=== PATIENT | female | born 1955 | race Caucasian/White ===

== ENCOUNTER → 2024-02-08 08:06 | Outpatient (REF) | payer MEDICARE, OTHER, SELFPAY ==
[2024-02-08 10:25] LABS: Blood Urea Nitrogen 15 mg/dl (7-17)
== END ==
LOC: REG 08:06
PROVIDERS: ATTENDING PHYSICIAN Specialist; FAMILY PHYSICIAN Family Medicine
DX: H53.8 Other visual disturbances (principal)
CPT/HCPCS: 36415; 82565; 84520

== ENCOUNTER → 2024-08-06 11:10 | Outpatient (REF) | payer MEDICARE, OTHER, SELFPAY | LOC: DHSLP 11:10 | PROVIDERS: ATTENDING PHYSICIAN Family Medicine | DX: G47.30 Sleep apnea, unspecified (principal); R06.83 Snoring | CPT/HCPCS: 95800 ==

== ENCOUNTER → 2025-02-16 07:09 | Outpatient (REF) | payer MEDICARE, OTHER, SELFPAY ==
[2025-02-16 18:53] LABS: Hepatitis B Surface Antigen Negative (Negative)
[2025-02-16 19:11] LABS: Hepatitis C Antibody Negative (Negative)
== END ==
LOC: REG 07:09
PROVIDERS: ATTENDING PHYSICIAN Family Medicine
DX: R60.9 Edema, unspecified (principal); E06.3 Autoimmune thyroiditis; Z85.828 Personal history of other malignant neoplasm of skin; I87.2 Venous insufficiency (chronic) (peripheral); J45.20 Mild intermittent asthma, uncomplicated; R73.01 Impaired fasting glucose; K76.0 Fatty (change of) liver, not elsewhere classified; Z96.653 Presence of artificial knee joint, bilateral; G43.109 Migraine with aura, not intractable, without status migrainosus
CPT/HCPCS: 36415; 83013; 84439; 84443; 86803; 87340